=== PATIENT | female | born 1985 | race Caucasian/White ===

== ENCOUNTER 2016-09-23 09:45 | Inpatient (IN) | payer MEDICAID, OTHER ==
--- NOTE | 2016-09-23 11:35 | Anesthesia Consultation ---
Anesthesia Consult and Med Hx Date of service: 09/23/16 - Airway Anesthetic Teeth Evaluation: Good ROM Head & Neck: Adequate Mental/Hyoid Distance: Adequate Mallampati Class: Class II Intubation Access Assessment: Probably Good - Pulmonary Exam CTA: Yes - Cardiac Exam Cardiac Exam: RRR - Pre-Operative Health Status ASA Pre-Surgery Classification: ASA2 Proposed Anesthetic Plan: Spinal - Pre-Anesthesia Comment Pre-Anesthesia Comments: at 39 weeks GA for repeat c/section. Patient reports h/o LE numbness and weakness during each which resolves after delivery of the fetus. Weakness in Left LE 3/5. Patient had difficulty doing straight leg raises with the Left LE. Patient is able to do straight leg raises with Right LE without problem. Patient and wishes to proceed with spinal anesthesia as risk for GA outweighs the benefits. Risks and benefits explained to both patient and extensively. - Pulmonary Hx Smoking: No Hx Asthma: No COPD: No Hx Pneumonia: No - Cardiovascular System Hx Hypertension: No - Central Nervous System Hx Neuromuscular Disorder: Yes (weakness in left LE d/t gravid uterus compressing the nerve, sciatica) Hx Seizures: No Hx Psychiatric Problems: Yes (depression) - Gastrointestinal Hx Gastroesophageal Reflux Disease: No - Endocrine Hx Renal Disease: No Hx Non-Insulin Dependent Diabetes: Yes (gestational) Hx Hypothyroidism: No Hx Hyperthyroidism: No - Hematic Hx Anemia: No Hx Sickle Cell Disease: No - Other Systems Hx Alcohol Use: No
[2016-09-23] MEDS ORDERED: ZOFRAN IV PRN ×2 (11:45→17:09)
[2016-09-23] MEDS ORDERED: PHENERGAN PO PRN (11:45)
[2016-09-23] MEDS ORDERED: PHENERGAN PR PRN (11:45)
[2016-09-23] MEDS ORDERED: DILAUDID IV PRN (11:45)
[2016-09-23] MEDS ORDERED: NARCAN 0.4 MG/1 ML IV PRN ×2 (11:45→17:09)
--- NOTE | 2016-09-23 11:45 | Anesthesia Day of Surgery ---
Anesthesia Day of Surgery - Day of Surgery Patient Examined: Yes Patient H&P Reviewed: Yes Patient is NPO: Yes
[2016-09-23 11:58] LABS: Basophils % (Auto) 0.8 % (0.0-1.8); Eosinophils % (Auto) 0.6 % (0.0-4.3); Hematocrit 37.5 % (30.3-42.9); Hemoglobin 12.5 gm/dl (10.1-14.3); Mean Corpuscular HGB Conc 33 % (30-34); Mean Corpuscular Hemoglobin 29 pg (28-32); Mean Corpuscular Volume 87 fl (79-97); Platelet Count 147 K/mm3 (140-440); Red Blood Count 4.29 M/mm3 (3.65-5.03); Red Cell Distribution Width 14.8 % (13.2-15.2); White Blood Count 6.3 K/mm3 (4.5-11.0)
[2016-09-23] MEDS ORDERED: SODIUM CHLORIDE FLUSH SYRINGE 10 ML IV SCH ×2 (12:00→17:09)
[2016-09-23] MEDS ORDERED: PITOCin/NS 20 UNIT/1000ML DRIP 20 UNITS/1,000 ML BAG IV SCH ×2 (12:00→18:00)
--- NOTE | 2016-09-23 12:13 | History and Physical Report ---
History of Present Illness Date of examination: 09/23/16 Date of admission: 09/23/16 09:45 Chief complaint: pt presents for repeat c/s Past History Past Medical History: diabetes (hx of GDM- previous ), other (hx of depression, ) Past Surgical History: section (x1) Social history: no significant social history - Obstetrical History Expected Date of Delivery: 09/30/16 Actual Gestation: 39 Week(s) 0 Day(s) : 2 Number of Living Children: 1 #1 Infant Gender: Female Method of Delivery: Complications: none Medications and Allergies Allergies Allergy/AdvReac Type Severity Reaction Status Date / Time No Known Allergies Allergy Verified 09/23/16 10:36 Home Medications Medication Instructions Recorded Confirmed Last Taken Type Pnv with Ca,No.72/Iron/FA 1 dose PO QDAY 03/23/14 03/23/14 03/22/14 08:00 History [ Plus Tablet] HYDROcodone/APAP 10-325 [[place] 1 each PO Q6HR PRN #30 tablet 03/25/14 Unknown Rx 10/325] Ibuprofen [Motrin 600 MG tab] 800 mg PO Q6H PRN #30 tablet 03/25/14 Unknown Rx Active Meds: Active Medications Citric Acid/Sodium Citrate (Bicitra) 30 ml PO ONCE ONE Stop: 09/23/16 13:01 Famotidine (Pepcid) 20 mg IV ONCE ONE Stop: 09/23/16 13:01 Hydromorphone HCl (Dilaudid) 0.5 mg IV Q4H PRN PRN Reason: breakthrough pain > 7/10 Lactated Ringer's (Lactated Ringers) 1,000 mls @ 2,250 mls/hr IV PREOP MARGE Stop: 09/24/16 13:27 Oxytocin/Sodium Chloride (Pitocin/Ns 20 Unit/1000ml Drip) 20 units in 1,000 mls @ 0 mls/hr IV TITR MARGE PRN Reason: As Directed Naloxone HCl (Narcan 0.4 Mg/1 Ml) 0.2 mg IV Q2MIN PRN PRN Reason: Res Rate </= 8 or 02 SAT < 92% Stop: 09/25/16 11:46 Ondansetron HCl (Zofran) 4 mg IV Q8H PRN PRN Reason: Nausea And Vomiting Promethazine HCl (Phenergan) 25 mg PO Q6H PRN PRN Reason: Nausea And Vomiting Promethazine HCl (Phenergan) 25 mg RI Q6H PRN PRN Reason: Nausea And Vomiting Sodium Chloride (Sodium Chloride Flush Syringe 10 Ml) 10 ml IV PRN [facility] Review of Systems All systems: negative - Vital Signs Vital signs: Vital Signs Pulse Pulse Ox 85 98 09/23/16 10:27 09/23/16 10:27 Temp Pulse Resp BP Pulse Ox 98.3 F 81 20 113/71 98 09/23/16 10:38 09/23/16 12:07 09/23/16 10:38 09/23/16 10:39 09/23/16 12:07 - Physical Exam Breasts: Positive: deferred Cardiovascular: Regular rate, Normal S1, Normal S2 Abdomen: Positive: normal appearance, soft, normal bowel sounds. Negative: distention, tenderness Vulva: both: normal Vagina: Positive: normal moisture. Negative: discharge Cervix: Negative: lesion, discharge Uterus: Positive: normal size, normal contour Adnexa: both: normal Anus/Rectum: Positive: normal perianal skin, heme negative. Negative: rectal mass, hemorrhoids Extremities: Deep Tendon Reflex Grade: Normal +2 - Obstetrical FHR: category 1 Uterine Contraction Monitor Mode: External Cervical Dilatation: 0 Cervical Effacement Percentage: 0 Uterine Contraction Pattern: Absent Uterine Tone Measurement Phase: Resting Results Result Diagrams: 09/23/16 11:20 All other labs normal. Assessment and Plan iup at 39 weeks, previous c/s x 1 Plan- prepare for repeat c/s
[2016-09-23] MEDS ORDERED: REGLAN ONE (12:31)
[2016-09-23] MEDS ORDERED: ANCEF/STERILE WATER 2 GM/20 ML 2 GM/20 ML SYRINGE IV ONE (12:32)
[2016-09-23] MEDS: LACTATED RINGERS 1,000 ML IV SCH ×2 (12:55→13:03)
[2016-09-23] MEDS ORDERED: PEPCID IV ONE (13:00)
[2016-09-23] MEDS ORDERED: BICITRA PO ONE (13:00)
[2016-09-23] MEDS ORDERED: MORPHINE ONE (13:33)
[2016-09-23] MEDS ORDERED: ANCEF/STERILE WATER 2 GM/20 ML IV ONE (13:40)
[2016-09-23] MEDS ORDERED: NACL 0.9% IR ONE (13:56)
[2016-09-23] MEDS ORDERED: WATER FOR IRRIG STERILE IR ONE (13:56)
[2016-09-23] MEDS ORDERED: LACTATED RINGERS 1,000 ML ONE (14:22)
--- NOTE | 2016-09-23 14:33 | Operative Report ---
Operative Report Operative Report: Preoperative diagnoses- Intrauterine at 39 weeks. previous c/s x1 Postoperative diagnoses- same Procedure- Repeat low segment transverse section Surgeon- Dr. Charlette Winston Anesthesia- Spinal/epidural Findings- live female , wt 7-9, apgars 9 & 9, normal tubes and ovaries. Estimated blood loss- 600ml Complications- none Instrument count- Correct Pathology specimens- Placenta - discarded Patient was taken to the OR. Spinal/epidural anesthesia was instituted. Patient was then placed in the dorsolithotomy position and Keating catheter was placed. Patient was then returned to the supine position and prepped and draped in usual sterile fashion. Level of anesthesia was checked and found to be adequate. Pfannenstiel skin incision was made. The incision was extended through the subcutaneous tissues to the fascia. Which was incised transversely using Mayos and pickups with teeth. The fascia was from the underlying muscle using Kochers and Bovie cautery. The rectus muscle was then in the midline. The peritoneum was visualized, grasped with hemostats and opened using the Metzenbaum scissors. Upon entering the peritoneal cavity an peace retractor was placed appropriately. A curvilinear incision was made with Metzenbaum scissors and a smooth pickup. A bladder flap was developed, a curvilinear incision was made in the lower uterine segment using a scalpel. The uterine cavity was entered bluntly with the surgeon's finger and the incision was enlarged. The Head of the was delivered . The mouth and nose were suctioned and the remainder of the body was delivered . The cord was doubly clamped and cut . Infant was given to the waiting team. The cord blood was obtained. The placenta was then delivered manually. The uterus is cleaned with a moist wet lap tape. The first layer of the uterus is closed with 0 Vicryl running interlocking stitch. The second layer of the uterus was closed with a 0 Vicryl horizontal imbricating stitch. The pelvic gutters were cleaned . Next the adnexa were examined and found to be normal. Next the fascia was closed with 0 Vicryl running suture. Next the subcutaneous tissue was reapproximated with 3-0 Vicryl running suture. The skin was reapproximated with a 4-0 Vicryl subcuticular stitch. Mastisol and Steri-Strips were placed . A pressure dressing was applied. The patient was transferred to recovery room in stable condition.
--- NOTE | 2016-09-23 14:35 | Procedure Note ---
OB Delivery Note - Delivery Date of Delivery: 09/23/16 Surgeon: MAGDIEL GODINEZ Estimated blood loss: other (600ml) - Section Preop diagnosis: repeat Postop diagnosis: same section procedure: section, repeat low transverse Disposition: PACU Complications: none - A at 1 minute: 9 at 5 minutes: 9 Gender: Female (infant and mother tolerated the procedure well.)
--- NOTE | 2016-09-23 14:45 | Post Anesthesia Evaluation ---
- Post Anesthesia Evaluation Patient Participated: Yes Airway Patent: Yes Stable Respiratory Function: Yes Nausea/Vomiting: No Temp > 96.8F: Yes Pain Manageable: Yes Adequeate Hydration: Yes Anesthesia Complications: No Block Receding Appropriately: Yes Patient on Ventilator: No
[2016-09-23] MEDS ORDERED: LANSINOH TP PRN (17:09)
[2016-09-23] MEDS ORDERED: TUCKS PAD TP PRN (17:09)
[2016-09-23] MEDS ORDERED: TORADOL IV PRN (17:09)
[2016-09-23] MEDS ORDERED: MILK OF MAGNESIA PO PRN (17:09)
[2016-09-23] MEDS ORDERED: MYLICON PO PRN (17:09)
[2016-09-23] MEDS: D5LR 1,000 ML IV SCH (18:34)
[2016-09-23] MEDS: ANCEF/NS 1 GM/50 ML 1 GM/50 ML BAG IV SCH (20:27)
[2016-09-23] MEDS: PERCOCET 5/325 PO PRN (21:07)
[2016-09-23] MEDS: MOTRIN PO PRN (21:07)
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
[2016-09-23] MEDS ORDERED: BENADRYL IV PRN (23:39)
[2016-09-24 01:13] LABS: Hematocrit 33.9 % (30.3-42.9); Hemoglobin 11.4 gm/dl (10.1-14.3)
[2016-09-24] MEDS: D5LR 1,000 ML IV SCH (03:05)
[2016-09-24] MEDS: ANCEF/NS 1 GM/50 ML 1 GM/50 ML BAG IV SCH (03:38)
[2016-09-24] MEDS: PERCOCET 5/325 PO PRN ×2 (12:50→18:59)
--- NOTE | 2016-09-24 14:44 | Progress Note ---
Subjective Date of service: 09/24/16 Interval history: 1st POD after Patient is in the bed, comfortable. Pain is controlled with pain meds. Ambulated well. No residual neurological deficit. No nausea or vomiting. There is some pruritus, mostly under control. No anesthesia complications Objective - Constitutional Vitals: Vital Signs - 12hr 09/24/16 09/24/16 05:00 08:22 Temperature 98.6 F 98.2 F Pulse Rate [ 82 80 From Monitor] Respiratory 22 20 Rate Blood Pressure 126/70 118/68 [Left Arm] - Labs CBC & Chem 7: 09/24/16 00:55
[2016-09-24] MEDS: MOTRIN PO PRN (20:45)
[2016-09-25] MEDS: PERCOCET 5/325 PO PRN ×2 (03:56→11:21)
[2016-09-25] MEDS: MOTRIN PO PRN ×2 (05:20→11:22)
[2016-09-25] MEDS ORDERED: BOOSTRIX IM ONE (06:00)
--- NOTE | 2016-09-25 07:54 | Progress Note ---
Assessment and Plan pod 1 s/p repeat c/s = doing well. Subjective - Subjective Date of service: 09/24/16 Principal diagnosis: pod 1 s/p repeat Interval history: pt to bathroom am of 09/24/16 with minimal dizziness. hct- normal this am Patient reports: appetite normal, voiding normally, pain well controlled : doing well Objective - Vital Signs Latest vital signs: Vital Signs Temp Pulse Resp BP 09/25/16 05:20 18 09/25/16 03:56 18 09/25/16 00:50 98.1 F 75 20 106/56 09/24/16 21:45 18 09/24/16 20:45 18 09/24/16 19:59 18 09/24/16 16:36 98.2 F 88 20 110/66 09/24/16 11:52 98.1 F 80 20 106/64 09/24/16 08:22 98.2 F 80 20 118/68 Intake and Output 09/24/16 09/25/16 09/25/16 22:59 06:59 14:59 Intake Total 840 240 Balance 840 240 Intake: Oral 360 240 Intake, Free Water 480 Other: Total, Intake Amount 240 120 # Voids Indwelling Catheter 1 1 Void 1 - Exam Abdomen: Present: normal appearance, soft Uterus: Present: normal, firm Extremities: Present: normal Incision: Present: normal, dry, intact
--- NOTE | 2016-09-25 07:56 | Progress Note ---
Assessment and Plan pod 2 s/p repeat c/s. plan d/c home this pm if stable Subjective - Subjective Date of service: 09/25/16 Principal diagnosis: pod 2 s/p repeat Interval history: pt w/o complaints Patient reports: appetite normal, voiding normally, pain well controlled : doing well Objective - Vital Signs Latest vital signs: Vital Signs Temp Pulse Resp BP 09/25/16 05:20 18 09/25/16 03:56 18 09/25/16 00:50 98.1 F 75 20 106/56 09/24/16 21:45 18 09/24/16 20:45 18 09/24/16 19:59 18 09/24/16 16:36 98.2 F 88 20 110/66 09/24/16 11:52 98.1 F 80 20 106/64 09/24/16 08:22 98.2 F 80 20 118/68 Intake and Output 09/24/16 09/25/16 09/25/16 22:59 06:59 14:59 Intake Total 840 240 Balance 840 240 Intake: Oral 360 240 Intake, Free Water 480 Other: Total, Intake Amount 240 120 # Voids Indwelling Catheter 1 1 Void 1 - Exam Breasts: Present: deferred Cardiovascular: Present: Regular rate, Normal S1, Normal S2 Lungs: Present: Clear to auscultation Abdomen: Present: normal appearance, soft Vulva: both: normal Uterus: Present: normal, firm Extremities: Present: normal Deep Tendon Reflex Grade: Normal +2 Incision: Present: normal, dry, intact
--- NOTE | 2016-09-25 07:59 | Discharge Summary ---
Providers - Providers Date of Admission: 09/23/16 09:45 Date of discharge: 09/25/16 Attending physician: MAGDIEL GODINEZ 09/23/16 16:47 Consult to Mental Health [CONS] Routine Reason For Exam: Hx of depression with this and previous Place consult to:: nasreen at [facility] Notified:: yes Phone number called:: [phone] Was contact made?: Yes If yes, spoke with:: Fritz Time called:: 09:07 Primary care physician: MAGDIEL GODINEZ Hospitalization Reason for admission: section Delivery: Procedure: section, repeat low transverse Procedure details: s/p repeat c/s -low vertical Episiotomy: none Laceration: none Incision: normal, dry, intact Other procedures: none complications: none Discharge diagnosis: IUP at term delivered [place] baby: female Hospital course: routine post op course. Condition at discharge: Good Disposition: DISCHARGED TO HOME OR SELFCARE - Discharge Diagnoses (1) Status post repeat low transverse section Status: Acute Plan - Discharge Medications Prescriptions: Ferrous Sulfate [Feosol 325 MG tab] 325 mg PO BID #60 tablet Ibuprofen [Motrin 800 MG tab] 800 mg PO Q8HR PRN #30 tablet PRN Reason: Pain oxyCODONE /ACETAMINOPHEN [Percocet 5/325] 1 tab PO Q6HR PRN #30 tablet PRN Reason: Pain Sertraline [Zoloft] 50 mg PO QDAY #30 tablet - Provider Discharge Summary Activity: routine, no sex for 6 weeks, no heavy lifting 4 weeks, no strenuous exercise Diet: routine Instructions: routine Additional instructions: [] Smoking cessation referral if applicable(refer to patient education folder for contact #) [] Refer to [facility] Booklet Call your doctor immediately for: * Fever > 100.5 * Heavy vaginal bleeding ( >1 pad per hour) * Severe persistent headache * Shortness of breath * Reddened, hot, painful area to leg or breast * Drainage or odor from incision. * Keep incision clean and dry at all times and follow doctor's instructions regarding bathing/showering - Follow up plan Follow up: MAGDIEL GODINEZ MD [Primary Care Provider] - 14 Days
[2016-09-25] MEDS ORDERED: DULCOLAX PR PRN (09:02)
[2016-09-25] MEDS ORDERED: FLUARIX QUAD 2016-2017(36 MOS+) IM ONE (11:57)
[2016-09-25 12:48] VITALS: BP 114/70
== END 2016-09-25 13:30 | disposition home or self-care (01) | DRG 766 ==
LOC: LD 09:45 → OB 15:59
PROVIDERS: ADMIT Specialist; ATTEND Specialist
PROC: 10D00Z1 Extraction of Products of Conception, Low, Open Approach (ICD-10-PCS; principal; 2016-09-23)
PROC: 3E0234Z Introduction of Serum, Toxoid and Vaccine into Muscle, Percutaneous Approach (ICD-10-PCS; 2016-09-25)
DX: O34.219 Maternal care for unspecified type scar from previous cesarean delivery (principal); O99.343 Other mental disorders complicating pregnancy, third trimester; F32.9 Major depressive disorder, single episode, unspecified; O99.214 Obesity complicating childbirth; F43.10 Post-traumatic stress disorder, unspecified; Z3A.39 39 weeks gestation of pregnancy; Z37.0 Single live birth; Z86.32 Personal history of gestational diabetes; Z68.33 Body mass index [BMI] 33.0-33.9, adult; Z23 Encounter for immunization
CPT/HCPCS: 36415; 85014; 85018; 85025; 86850; 86900; 86901; 90471; 90686; 90715; 99211; G0463; J0690; J1200; J1885; J2270; J2590; J2765; J7120; J7121